=== PATIENT | female | born 1985 | race Caucasian/White ===

== ENCOUNTER 2017-08-31 13:05 | Emergency (ER) | payer MEDICAID ==
[~2017-08-31] VITALS: Ht 165.1 cm; Wt 69.0 kg
[2017-08-31] MEDS ORDERED: LAMO150T PO (13:10)
[2017-08-31] MEDS ORDERED: TraMADol HCL 50 MG TABLET PO ONE (14:30)
[2017-08-31] MEDS ORDERED: CYCLOBENZAPRINE HCL 10 MG TABLET PO ONE (14:30)
[2017-08-31 15:00] VITALS: BP 128/75
== END 2017-08-31 15:32 | disposition home or self-care (01) ==
LOC: EMS 13:07
DX: M62.838 Other muscle spasm (principal); F17.210 Nicotine dependence, cigarettes, uncomplicated
CPT/HCPCS: 81025; 99283; 99406